=== PATIENT | female | born 1970 | race American Indian/Alaskan Native ===

== ENCOUNTER 2017-11-24 18:50 | Emergency (ER) | payer SELFPAY ==
[2017-11-24 19:02] VITALS: BP 146/82; PULSE 80; RESP 14; TEMP 98; O2SAT 100
[2017-11-24] MEDS ORDERED: Naproxen 500 MG TAB PO STA (19:18)
[2017-11-24] MEDS ORDERED: Naproxen 500 MG TAB PO ONE (19:27)
--- NOTE | 2017-11-24 19:41 | ED PDOC ---
Lower Extremity Pain/Injury Time Seen by Provider: 11/24/17 19:03 Chief Complaint (Nursing): Lower Extremity Problem/Injury Chief Complaint (Provider): Left knee pain History Per: Patient History/Exam Limitations: no limitations Onset/Duration Of Symptoms: Hrs Current Symptoms Are (Timing): Still Present Additional Complaint(s): 47 year old female presents to the emergency department with a complaint of a left knee pain status post fall this morning, 11/24/2017. States she was walking in front of a restaurant when she slipped and fell on an uneven concrete injuring the left knee. reports she thought pain would improve throughout the day after taking an Advil around 11 am but it did not relief symptoms. Fall happened around 7am with persistent pain which prompted patient to the emergency department. Denies history of knee injuries, loss of consciousness, head injury, radiation of pain, or any further medical complaints at this time. Past Medical History Reviewed: Historical Data, Nursing Documentation, Vital Signs Vital Signs: Last Vital Signs Temp 98 F 11/24/17 18:57 Pulse 80 11/24/17 18:57 Resp 14 11/24/17 18:57 BP 146/82 11/24/17 18:57 Pulse Ox 100 11/24/17 18:57 - Medical History PMH: No Chronic Diseases - Surgical History Surgical History: No Surg Hx - Family History Family History: States: Unknown Family Hx - Social History Current smoker - smoking cessation education provided: No Alcohol: None Drugs: Denies - Home Medications Home Medications: Ambulatory Orders Medication Instructions Recorded Azithromycin [Zithromax Z-Nicho] 250 mg PO DAILY #0 tab 04/18/14 Fluticasone Nasal [Flonase] 1 spray NS DAILY #0 spr 04/18/14 Naproxen 500 mg PO BID #20 tab 11/24/17 - Allergies Allergies/Adverse Reactions: Allergies Allergy/AdvReac Type Severity Reaction Status Date / Time No Known Allergies Allergy Verified 04/18/14 20:27 Review of Systems ROS Statement: Except As Marked, All Systems Reviewed And Found Negative (As per HPI, otherwise negative) Constitutional: Negative for: Other (Head injury, loss of consciousness, radiation of pain, or history of left knee injury ) Musculoskeletal: Positive for: Other (left knee pain) Physical Exam - Reviewed Nursing Documentation Reviewed: Yes Vital Signs Reviewed: Yes - Physical Exam Comments: GENERAL APPEARANCE: Patient is awake, alert, oriented x 3, in no acute distress. SKIN: Warm, dry; (-) cyanosis. LOWER EXTRM: (+) Ambulatory in emergency department with steady gait. (+) Diffuse tenderness of the left knee. (+) Range of motion intact with pain on flexion. (-) No effusion, ecchymosis, or skin break. (-) No instability on valgus or varus stress. (-) Anterior or posterior drawer sign. (-) Calf tenderness. Remainder of the lower extrm with full ROM. NEURO AND PSYCH: Mental status as above. - ECG O2 Sat by Pulse Oximetry: 100 (RA) Pulse Ox Interpretation: Normal Medical Decision Making Medical Decision Making: Time: 1904 Initial impression: Acute knee pain/contusion status post fall Initial plan: Left knee x-ray Naproxen 500 mg PO Reevaluation Time: 1948 --x-ray read by me show no significant abnormality. Patient advised that official radiology read of XR is still pending and will call the patient if there is any discrepancy within 24 hours. --Preston wrap applied to knee. NV intact after placement. On re-evaluation, patient reports improvement of symptoms. On exam, patient remains AAOx3, in no acute distress. On exam, neck is supple, lungs CTA, cardiac RRR, neuro exam shows no focal findings. Ambulatory in ED with steady, unassisted gait. VSS, stable for discharge. RICE encouraged. Diagnostic results d/w the patient in great detail. Dx of acute knee pain/ contusion s/p fall d/w the patient. Based on history, exam and diagnostic results plan will be for discharge and outpatient follow up. Advised to follow up with primary care physician in 1-2 days without fail. Advised to take medication as prescribed. Return to the emergency room at any time for any new or worsening symptoms. Patient states she fully agrees with and understands discharge instructions. States that she agrees with the plan and disposition. Verbalized and repeated discharge instructions and plan. I have given the patient opportunity to ask any additional questions. Time: 2018 --Application of PRESTON bandage --Medically stable for discharge and given Rx for Naproxen 500 mg. Advised to follow up with Dr. Corey Tavarez MD Clinical Impression: Knee pain, acute. Contusion of knee. Fall. Scribe Attestation: Documented by Emani Monsalve, acting as a scribe for Karmen Alvarez PA-C. Provider Scribe Attestation: All medical record entries made by the Scribe were at my direction and personally dictated by me. I have reviewed the chart and agree that the record accurately reflects my personal performance of the history, physical exam, medical decision making, and the department course for this patient. I have also personally directed, reviewed, and agree with the discharge instructions and disposition. Disposition - Clinical Impression Clinical Impression: Knee pain, acute, Contusion of knee, Fall - Patient ED Disposition Is Patient to be Admitted: No Counseled Patient/Family Regarding: Studies Performed, Diagnosis, Need For Followup, Rx Given - Disposition Referrals: Corey Tavarez III, MD [Staff Provider] - Disposition: Routine/Home Disposition Time: 20:19 Additional Instructions: REST ICE COMPRESS (BANDAGE) ELEVATE FOLLOW UP WITH PMD/ORTHO IN 1-2 DAYS WITHOUT FAIL. RETURN TO ED WITH ANY NEW OR WORSENING SYMPTOMS. Prescriptions: Naproxen 500 mg PO BID #20 tab Instructions: Contusion (DC), Knee Pain Forms: [facility] ([place]ican) - POA Present On Arrival: Falls Or Trauma
--- NOTE | 2017-11-25 10:26 | RAD ---
PROCEDURE: Left Knee Radiographs. HISTORY: Left knee Pain. No history of recent/ related trauma provided COMPARISON: None. FINDINGS: BONES: Normal. No fracture. JOINTS: Normal. No osteoarthritis. JOINT EFFUSION: None. OTHER FINDINGS: None. IMPRESSION: Normal radiographs of the left knee.
== END 2017-11-24 20:48 | disposition home or self-care (01) ==
LOC: H.ER 18:50
DX: S80.02XA Contusion of left knee, initial encounter (principal); W18.09XA Striking against other object with subsequent fall, initial encounter; Y93.01 Activity, walking, marching and hiking; Y92.480 Sidewalk as the place of occurrence of the external cause

== ENCOUNTER 2018-03-06 14:27 | Emergency (ER) | payer OTHER ==
[2018-03-06 14:32] VITALS: BMI 23.3
[2018-03-06] MEDS ORDERED: Sodium Chloride 0.9% 1,000 ML IV STA (15:26)
[2018-03-06 15:28] LABS: VENOUS BLOOD GAS BASE EXCESS 7.4 mmol/L (0.0-2.0); VENOUS BLOOD GAS PCO2 40 mmHg (40-60); VENOUS BLOOD GAS PO2 27 mm/Hg (30-55)
[2018-03-06 15:42] LABS: SQUAMOUS EPITHIAL 7 /hpf (0-5); URINE BACTERIA MOD (<OCC); URINE BILIRUBIN NEGATIVE (NEGATIVE); URINE CLARITY CLOUDY (Clear); URINE COLOR YELLOW (YELLOW); URINE GLUCOSE (UA) NEG (Normal); URINE LEUKOCYTE ESTERASE SMALL Leu/uL (Negative); URINE PROTEIN 100 mg/dL (NEGATIVE)
[2018-03-06 15:43] LABS: URINE BLOOD SMALL (NEGATIVE)
[2018-03-06 15:43] LABS: ALB/GLOB RATIO 1.1 (1.0-2.1); ALT/SGPT 23 U/L (9-52); AST/SGOT 36 U/L (14-36); BLOOD UREA NITROGEN 6 mg/dl (7-17); CALCIUM 8.8 mg/dL (8.4-10.2); GFR NON-AFRICAN AMERICAN > 60; LIPASE 14 U/L (23-300)
[2018-03-06 15:50] LABS: INR 1.4; PROTHROMBIN TIME 15.6 Seconds (9.8-13.1)
[2018-03-06 15:52] LABS: PARTIAL THROMBOPLASTIN TIME 31.2 Seconds (25.6-37.1)
[2018-03-06 15:54] LABS: BASO % 0.2 % (0.0-2.0); HEMOGLOBIN 7.6 g/dL (12.0-16.0); LYMPH # 0.9 K/uL (1.0-4.3); LYMPH % 6.6 % (20.0-40.0); MEAN CELL VOLUME 66.6 fl (81.0-99.0); MEAN CORPUSCULAR HEMOGLOBIN 21.3 pg (27.0-31.0); MEAN PLATELET VOLUME 8.1 fl (7.2-11.7); MONO # 1.5 K/uL (0.0-0.8); MONO % 10.5 % (0.0-10.0); NEUT # 11.7 K/uL (1.8-7.0); NEUT % 82.7 % (50.0-75.0); NRBC % 0.1 % (0.0-0.0); PLATELET COUNT 324 K/uL (130-400); RBC 3.58 Mil/uL (3.80-5.20); RED CELL DISTRIBUTION WIDTH 17.5 % (11.5-14.5); WHITE BLOOD COUNT 14.2 K/uL (4.8-10.8)
--- NOTE | 2018-03-06 16:14 | RAD ---
Date of service: 03/06/2018 HISTORY: possible admission COMPARISON: Comparison chest 10/20/2012 FINDINGS: LUNGS: No active pulmonary disease. PLEURA: No significant pleural effusion identified, no pneumothorax apparent. CARDIOVASCULAR: Normal. OSSEOUS STRUCTURES: No significant abnormalities. VISUALIZED UPPER ABDOMEN: Normal. OTHER FINDINGS: None. IMPRESSION: No active disease.
--- NOTE | 2018-03-06 16:40 | ED PDOC ---
HPI: General Adult Time Seen by Provider: 03/06/18 14:59 Chief Complaint (Nursing): Flu-like Symptoms Chief Complaint (Provider): Flu-like Symptoms History Per: Patient History/Exam Limitations: no limitations Onset/Duration Of Symptoms: Days (x4) Additional Complaint(s): Patient is a 47 y/o female with no significant past medical history who presents to the ED for evaluation of fever with associated loss of appetite and general weakness, onset x4 days ago. Patient states that she was taking Motrin and initially it was working but it has not been helping now. She also reports 1 episode of vomiting after drinking a lot of apple juice. She states she now has no appetite and has not had a full meal for the past x2 days. Patient denies any toxic habits. She also denies dysuria and hematuria. Patient presents to the ED today because symptoms got worse and Motrin medication no longer provided relief. Past Medical History Reviewed: Historical Data, Nursing Documentation, Vital Signs Vital Signs: Last Vital Signs Temp 99.8 F H 03/06/18 16:53 Pulse 85 03/06/18 16:53 Resp 16 03/06/18 16:53 BP 116/54 L 03/06/18 16:53 Pulse Ox 100 03/06/18 16:53 - Medical History PMH: No Chronic Diseases - Surgical History Surgical History: No Surg Hx - Family History Family History: States: Unknown Family Hx - Social History Current smoker - smoking cessation education provided: No Alcohol: Social Drugs: Denies - Home Medications Home Medications: Ambulatory Orders Medication Instructions Recorded Azithromycin [Zithromax Z-Nicho] 250 mg PO DAILY #0 tab 04/18/14 Fluticasone Nasal [Flonase] 1 spray NS DAILY #0 spr 04/18/14 Naproxen 500 mg PO BID #20 tab 11/24/17 - Allergies Allergies/Adverse Reactions: Allergies Allergy/AdvReac Type Severity Reaction Status Date / Time No Known Allergies Allergy Verified 04/18/14 20:27 Review of Systems ROS Statement: Except As Marked, All Systems Reviewed And Found Negative Constitutional: Positive for: Fever, Weakness, Other (loss of appetite) Gastrointestinal: Positive for: Vomiting Genitourinary Female: Negative for: Dysuria, Hematuria Skin: Negative for: Rash Physical Exam - Reviewed Nursing Documentation Reviewed: Yes Vital Signs Reviewed: Yes - Physical Exam Appears: Positive for: No Acute Distress, Uncomfortable Head Exam: Positive for: ATRAUMATIC, NORMOCEPHALIC Skin: Positive for: Normal Color, Warm, Dry Eye Exam: Positive for: EOMI, Normal appearance, PERRL ENT: Positive for: Normal ENT Inspection, Pharynx Is (normal ). Negative for: Pharyngeal Erythema, Tonsillar Exudate, Tonsillar Swelling Neck: Positive for: Normal, Painless ROM, Supple Cardiovascular/Chest: Positive for: Tachycardia. Negative for: Murmur Respiratory: Positive for: Normal Breath Sounds. Negative for: Respiratory Distress Pulses-Dorsalis Pedis (L): 2+ Pulses-Dorsalis Pedis (R): 2+ Pulses-Radial (L): 2+ Pulses-Radial (R): 2+ Gastrointestinal/Abdominal: Positive for: Tenderness (lower abdomen tender to palpation bilaterally) Back: Positive for: Normal Inspection. Negative for: L CVA Tenderness, R CVA Tenderness Extremity: Positive for: Normal ROM. Negative for: Pedal Edema, Calf Tenderness (pain on calf squeez), Deformity, Swelling Neurologic/Psych: Positive for: Alert, Oriented. Negative for: Motor/Sensory Deficits - Laboratory Results Result Diagrams: 03/06/18 15:30 03/06/18 15:30 - ECG O2 Sat by Pulse Oximetry: 99 (RA) Pulse Ox Interpretation: Normal Medical Decision Making Medical Decision Making: Time: 15:15 Impression: Workup for infectious process; labs and cultures ordered Initial Plan: --VBG --EKG --CMP --HCG --Lipase --CBC w/ diff --PTT --Prothrombin time --CXR --IV fluids --Toradol --Zofran --Urinalysis --reassess patient 19:00 Patient initially had a WBC count of 14 with anemia of 7.7 and hematocrit 23 ( discussion with patient to confirm no shortness of breath, no recent dizziness, and no blood per rectum) Potassium of 3.0 with PO repletion. Patient states that she is feeling better but still has some abdominal pain. She was just at CT. Will be signed out to Dr. Funk pending CT results and final disposition. Scribe Attestation: Documented by Sriram Roman acting as a scribe for Karmen Prater Provider Scribe Attestation: All medical record entries made by the Scribe were at my direction and personally dictated by me. I have reviewed the chart and agree that the record accurately reflects my personal performance of the history, physical exam, medical decision making, and the department course for this patient. I have also personally directed, reviewed, and agree with the discharge instructions and disposition. Disposition - Disposition Forms: [employer] (Macedonian)
[2018-03-06 16:54] VITALS: RESP 16
[2018-03-06] MEDS ORDERED: Iohexol 240 (50 ml) PO STA (16:57)
[2018-03-06] MEDS ORDERED: Iohexol 240 (50 ml) ONE (17:09)
[2018-03-06 17:59] LABS: LYMPHOCYTE 6 % (20-50); MONOCYTE 8 % (0-10); NEUTROPHIL 86 % (42-75); TOTAL CELLS COUNTED 100
[2018-03-06 18:00] LABS: ANISOCYTOSIS SLIGHT; MICROCYTOSIS MODERATE; OVALOCYTES SLIGHT; POIKILOCYTOSIS SLIGHT
[2018-03-06 18:01] LABS: LARGE PLATELETS PRESENT
[2018-03-06] MEDS ORDERED: Potassium Chloride 20 mEq ER Tab PO STA (18:20)
[2018-03-06 18:25] LABS: PLATELET ESTIMATE NORMAL (NORMAL)
[2018-03-06] MEDS ORDERED: Potassium Chloride 20 mEq ER Tab PO ONE (18:39)
--- NOTE | 2018-03-06 19:31 | ED PDOC ---
- Laboratory Results Result Diagrams: 03/06/18 15:30 03/06/18 15:30 - ECG O2 Sat by Pulse Oximetry: 99 (RA) Pulse Ox Interpretation: Normal Medical Decision Making Medical Decision Making: Time: 19:00 Patient signed out to me by Dr. Prater pending CT scan, reassessment, and final disposition. CT Abd/Pelvis: FINDINGS: Lung bases: Unremarkable. No mass. No consolidation. ABDOMEN: Liver: Unremarkable. No mass. Gallbladder and bile ducts: Unremarkable. No calcified stones. No ductal dilation. Pancreas: Unremarkable. No mass. No ductal dilation. Spleen: Unremarkable. No splenomegaly. Adrenals: Unremarkable. No mass. Kidneys and ureters: Unremarkable. No solid mass. No hydronephrosis. Stomach and bowel: Unremarkable. No obstruction. No mucosal thickening. PELVIS: Appendix: Normal appendix. Bladder: Unremarkable. No mass. Reproductive: Multiple large masses in the uterus which may be due to fibroids but some of these are indeterminate based on their size and centrally necrotic appearance. ABDOMEN and PELVIS: Intraperitoneal space: Unremarkable. No free air. No significant fluid collection. Bones/joints: No acute fracture. No dislocation. Soft tissues: Unremarkable. Vasculature: Unremarkable. No abdominal aortic aneurysm. Lymph nodes: Unremarkable. No enlarged lymph nodes. IMPRESSION: Multiple large masses in the uterus which may be due to fibroids but some of these are indeterminate based on their size and centrally necrotic appearance. MRI evaluation may be helpful if indicated. 21:18 Transvaginal Ultrasound ordered. EXAM: US Pelvis, Transvaginal CLINICAL HISTORY: 47 years old, female; Signs and symptoms; Other: Bodyache and chills; Additional info: Possible necrotic fibroids TECHNIQUE: Real-time transvaginal pelvic ultrasound (complete) with image documentation. Transvaginal imaging was used for better evaluation of the endometrium and adnexa. COMPARISON: CT - ABD PELVIS PO IV CONTRAST 03/06/2018 7:50 PM FINDINGS: Uterus/cervix: Multiple large uterine masses most likely representing fibroids. These probable fibroids are intramural, submucosal and exophytic. The largest measures 9.7 x 10.1 cm in the fundus. Uterus measures 15.8 x 9.2 cm. The third dimension is not measured. Endometrial stripe measures 8 mm in thickness. Right ovary: Right ovary is not seen. Left ovary: Left ovary is not seen. Free fluid: Small amount of free fluid in the pelvic cul-de-sac. IMPRESSION: 1. Multiple large uterine masses most likely representing fibroids. These probable fibroids are intramural, submucosal and exophytic. The largest measures 9.7 x 10.1 cm in the fundus. Given the size of these uterine masses, malignancy is not excluded and followup is recommended. 2. Ovaries are not seen. Thank you for allowing us to participate in the care of your patient. Dictated and Authenticated by: Adan Santana MD 03/06/2018 11:03 PM Eastern Time ([place] & [place]) DW pt findings and plan of care. Urgent followup with [facility]. On reeval, pt more concerned about symptoms of sinus pressure and pt febrile. Tylenol/ibuprofen ordered. Will rx for sinusitis. Scribe Attestation: Documented by, Juanis Carson acting as a scribe for Jessica Funk MD. Provider Scribe Attestation: All medical record entries made by the Scribe were at my direction and personally dictated by me. I have reviewed the chart and agree that the record accurately reflects my personal performance of the history, physical exam, medical decision making, and the department course for this patient. I have also personally directed, reviewed, and agree with the discharge instructions and disposition. Disposition - Clinical Impression Clinical Impression: Fever, Sinusitis, Fibroid, Anemia, Hypokalemia - POA Present On Arrival: None - Disposition [facility] - 03/07/18 (CALL TOMORROW TO SETUP FOLLOWUP APPOINTMENT THIS WEEK) Disposition: Routine/Home Disposition Time: 21:00 Condition: STABLE Prescriptions: Amoxicillin/Clavulanate [Augmentin 875 MG-125 MG] 1 tab PO BID #14 tab Ferrous Sulfate [Feosol] 325 mg PO TID #90 tab Fluticasone Propionate [Flonase] 1 spr NS DAILY #1 bot Ibuprofen [Motrin Tab] 600 mg PO Q8 PRN #60 tab PRN Reason: FEVER OR HEADACHE Instructions: Hypokalemia (DC), Anemia Caused by Low Iron, Adult (DC), Sinusitis, Adult (DC), Uterine Fibroids (DC) Forms: [facility] ED School/Work Excuse
[2018-03-06] MEDS ORDERED: Iohexol 300 100 ML IJ ONE (19:47)
[2018-03-06] MEDS ORDERED: Sodium Chloride 0.9% 50 ML IV ONE (19:47)
[2018-03-06 21:20] VITALS: BP 105/63; PULSE 76; TEMP 98.3
[2018-03-06 21:31] VITALS: O2SAT 99
--- NOTE | 2018-03-06 22:56 | CARD ---
APPROVED REPORT Date of service: 03/06/2018 EKG Measurement Heart [id number] <Conclusion> Normal sinus rhythm Normal ECG
--- NOTE | 2018-03-07 14:31 | CT ---
Date of service: 03/06/2018 PROCEDURE: CT Abdomen and Pelvis with contrast HISTORY: abd pain, vomit, leukocytosis COMPARISON: Transvaginal ultrasound 03/06/2018. TECHNIQUE: Following oral and intravenous contrast administration, a CT examination of the abdomen and pelvis performed from the domes of the diaphragms to the symphysis pubis with reformatted datasets provided not only axial but also sagittal and coronal series. Contrast dose: Omnipaque 300, 100 cc Radiation dose: Total exam DLP = 216.34 mGy-cm. This CT exam was performed using one or more of the following dose reduction techniques: Automated exposure control, adjustment of the mA and/or kV according to patient size, and/or use of iterative reconstruction technique. FINDINGS: LOWER THORAX: Unremarkable. LIVER: Unremarkable. No gross lesion or ductal dilatation. GALLBLADDER AND BILE DUCTS: Unremarkable. PANCREAS: Unremarkable. No gross lesion or ductal dilatation. SPLEEN: Unremarkable. ADRENALS: Unremarkable. No mass. KIDNEYS AND URETERS: Unremarkable. No hydronephrosis. No solid mass. VASCULATURE: Unremarkable. No aortic aneurysm. BOWEL: Unremarkable. No obstruction. No gross mural thickening. APPENDIX: Normal appendix. PERITONEUM: Unremarkable. No free fluid. No free air. LYMPH NODES: Unremarkable. No enlarged lymph nodes. BLADDER: Unremarkable. REPRODUCTIVE: The uterus is grossly enlarged due to various solid and cystic irregularly enhancing masses likely reflecting fibroid uterine disease. The largest mass is predominantly radial lucent at the left side of the uterus measuring at least 9.2 x 8.2 cm which trace internal enhances suspicious for a degenerated fibroid. This can be better characterized by MRI with and without intravenous gadolinium if not already evaluated and as clinically warranted. BONES: No acute fracture. OTHER FINDINGS: None. IMPRESSION: 1. No definite acute abdominal findings. 2. Enlarged uterus likely on the basis of extensive uterine fibroid changes including a large degenerated fibroid 9.2 x 8.2 cm at the left uterine fundus as described above. Further care station by MRI with and without gadolinium can be performed if not already evaluated and as clinically warranted. Concordant preliminary report from [facility], 03/06/2018.
--- NOTE | 2018-03-07 16:36 | US ---
Date of service: 03/06/2018 HISTORY: possible necrotic fibroids COMPARISON: None available. TECHNIQUE: Transvaginal pelvic ultrasound was performed with longitudinal and transverse images submitted for interpretation. FINDINGS: UTERUS: Measures 15.9 x 9.2 x 13.2 cm. Uterus is quite enlarged and appears slightly retroverted with extensive myometrial changes. There multiple uterine fibroids identified with the largest identified at the upper to mid fundus toward the left measuring 9.7 x 10.1 x 10.2 cm. The endometrium is not identified due to extensive fibroid uterine changes. No definitive cystic changes are identified throughout the demonstrated fibroids. An upper fundal pedunculated fibroid measures 3.5 cm. A mid fundal sub serosal fibroid measures 3.4 cm greatest dimension with 2 lower uterine segment fibroids present. The more caudal cephalad measures 2.2 cm greatest dimension the more caudad measures 4.9 cm, which bridges the sub serosal and submucous spaces. Finally, a posterior lower uterine segment fibroid measures 4.7 cm and also bridges submucous and sub serosal spaces. ENDOMETRIUM: The endometrium is not confidently demonstrated due to extensive uterine fibroids. CERVIX: No cervical abnormality identified. RIGHT OVARY: None identified. LEFT OVARY: Not identified. FREE FLUID: No significant free fluid noted. OTHER FINDINGS: None. IMPRESSION: Gross uterine enlargement is appreciated multiple uterine fibroids numbering at least 6 with the dominant fibroid identified at the upper left fundus. At least 3 fibroids bridges both the submucous and sub serosal spaces with the endometrium limited evaluation. No suspicious adnexal mass however neither ovary is identified, potentially a function of enlarged fibroid uterus.
== END 2018-03-07 00:56 | disposition home or self-care (01) ==
LOC: H.ER 14:27
DX: R50.9 Fever, unspecified (principal); J32.9 Chronic sinusitis, unspecified; D25.9 Leiomyoma of uterus, unspecified; D64.9 Anemia, unspecified; E87.6 Hypokalemia; R00.0 Tachycardia, unspecified
CPT/HCPCS: 71045; 74177; 76830; 80053; 81003; 81025; 82803; 83690; 85025; 85610; 85730; 87040; 87086; 93005; 96361; 96374; 96375; 99285; J1885; J2405; J7030; Q9966; Q9967

== ENCOUNTER 2018-11-02 11:07 | Emergency (ER) | payer OTHER ==
[2018-11-02 11:08] VITALS: BMI 23.3
[2018-11-02] MEDS ORDERED: Sodium Chloride 0.9% 1,000 ML IV STA (11:33)
[2018-11-02] MEDS ORDERED: Iohexol 240 (50 ml) PO STA (11:36)
--- NOTE | 2018-11-02 11:43 | ED PDOC ---
HPI:Nausea, Vomiting, Diarrhea Time Seen by Provider: 11/02/18 11:14 Chief Complaint (Nursing): GI Problem Chief Complaint (Provider): diarrhea History Per: Patient History/Exam Limitations: no limitations Additional Complaint(s): 48 y/o F with no significant PMH who presents with diarrhea for the past 6 days. Pt states that she has been having watery diarrhea every time she eats or drinks anything about 5 - 6 times per day. She gets crampy left sided abdominal pain right before she has the diarrhea but otherwise denies pain, N/V, fevers, chills, dysuria, vaginal discharge. Stool is more formed today but she has not eaten or drank anything since 6:30pm last night. She further denies dizziness/weakness. LMP 10/26/18. Past Medical History Reviewed: Historical Data, Nursing Documentation, Vital Signs Vital Signs: Last Vital Signs Temp 98.2 F 11/02/18 11:13 Pulse 70 11/02/18 11:13 Resp 16 11/02/18 11:13 BP 116/74 11/02/18 11:13 Pulse Ox 99 11/02/18 11:13 - Medical History PMH: No Chronic Diseases - Surgical History Surgical History: No Surg Hx - Family History Family History: States: Unknown Family Hx - Social History Current smoker - smoking cessation education provided: No Ex-Smoker (has not smoked in the last 12 months): No Alcohol: Occasional Drugs: Denies - Allergies Allergies/Adverse Reactions: Allergies Allergy/AdvReac Type Severity Reaction Status Date / Time No Known Allergies Allergy Verified 04/18/14 20:27 Review of Systems Constitutional: Negative for: Fever, Chills Gastrointestinal: Positive for: Abdominal Pain, Diarrhea. Negative for: Nausea, Vomiting Genitourinary Female: Negative for: Dysuria Physical Exam - Reviewed Nursing Documentation Reviewed: Yes Vital Signs Reviewed: Yes - Physical Exam Appears: Positive for: Non-toxic Skin: Positive for: Normal Color Cardiovascular/Chest: Positive for: Regular Rate, Rhythm Respiratory: Positive for: Normal Breath Sounds Gastrointestinal/Abdominal: Positive for: Soft, Tenderness (mild LLQ abdominal tenderness on palpation). Negative for: Distended, Guarding, Rebound Back: Negative for: L CVA Tenderness, R CVA Tenderness Neurological/Psych: Positive for: Awake, Alert, Oriented - Laboratory Results Result Diagrams: 11/02/18 12:20 11/02/18 12:20 - ECG O2 Sat by Pulse Oximetry: 99 Medical Decision Making Medical Decision Making: CBC, CMP, lipase CT abd/pelvis w/ PO and IV contrast NS 1L IV x1 Urine dip Urine preg Urine dip: LE negative, nitrate negative, trace blood CT: FINDINGS: LOWER THORAX: Unremarkable. LIVER: Probable diffuse fatty infiltration of the liver.. No gross lesion or ductal dilatation. GALLBLADDER AND BILE DUCTS: Unremarkable. PANCREAS: Unremarkable. No gross lesion or ductal dilatation. SPLEEN: Unremarkable. ADRENALS: Unremarkable. No mass. KIDNEYS AND URETERS: Unremarkable. No hydronephrosis. No solid mass. VASCULATURE: Unremarkable. No aortic aneurysm. No aortic atherosclerotic calcification or mural plaque present. BOWEL: Unremarkable. No obstruction. No gross mural thickening. APPENDIX: Portions of the appendix are believed identified and appear grossly unremarkable.. PERITONEUM: Unremarkable. No free fluid. No free air. LYMPH NODES: Unremarkable. No enlarged lymph nodes. BLADDER: Small-appears to be compressed by the enlarged uterus REPRODUCTIVE: The uterus is grossly abnormal is grossly enlarged and lobulated. The internal density consist of multiple mostly hypodense mass some areas of relative peripheral enhancement are present. An enlarged uterus filled with multiple fibroids is inferred. The largest such fibroid appears to the left of the fundu s is mostly still appears intramural it measures approximately 9 mm by 9 mm x 6.5 cm. The entire uterus anteverted is estimated to be from the cervix base to the fundus at least 14 cm. With an AP dimension of 9.4 cm in width of approximately 11 cm. The uterus markedly compresses the bladder and displaces surrounding bowel loops. The ureters are difficult to track distally proximal hydronephrosis or no proximal hydroureter seen. Distinct ovaries separate from this large heterogeneous fibroid filled uterus is problematic. And not definitive. BONES: No acute fracture. OTHER FINDINGS: None. IMPRESSION: Markedly abnormal appearing uterus-enlarged inferred as filled with multiple uterine fibroids clearly identified.. Neither ovary is definitively identified. Of the enlarged uterus is compressing the bladder and displacing bowel loops cephalad. No proximal ureteral dilatation. No proximal hydronephrosis. The distal ureters however are not Labs: HgB 8.6 (previously 7.3 in 2018). Pt states that she takes iron intermittently. Advised to take iron regularly and to remain hydrated. Follow up with Patient Service Rep re: uterine fibroids and crusher for further evaluation of low WBCs. She has not had further diarrhea while in ED. Stable for d/c home. Disposition - Clinical Impression Clinical Impression: Diarrhea - Patient ED Disposition Is Patient to be Admitted: No Counseled Patient/Family Regarding: Studies Performed, Diagnosis, Need For Followup - Disposition [facility] Anitra Antonio MD [Staff Provider] - Disposition: Routine/Home Disposition Time: 17:15 Condition: STABLE Additional Instructions: Follow up with your medical billing supervisor for further evaluation of fibroids. Stay hydrated and drink lots of fluids. Avoid greasy foods and milk products. Eat bananas, applesauce, rice, tea and toast. Follow up with crusher re: low white blood cells. Take iron for your anemia. Return to ER for worsening symptoms. Instructions: Diarrhea and Traveler's Diarrhea, Adult (DC) Forms: [facility] ([place]), [facility] ED School/Work Excuse Print Language: LAO
[2018-11-02] MEDS ORDERED: Iohexol 240 (50 ml) ONE (11:44)
[2018-11-02 12:59] LABS: BASO % 1.5 % (0.0-2.0); EOS # 0.1 K/uL (0.0-0.7); EOS % 1.9 % (0.0-4.0); HEMOGLOBIN 8.6 g/dL (12.0-16.0); LYMPH % 36.2 % (20.0-40.0); MEAN CELL VOLUME 68.1 fl (81.0-99.0); MEAN CORPUSCULAR HGB CONC 30.8 g/dL (33.0-37.0); MONO # 0.4 K/uL (0.0-0.8); MONO % 12.7 % (0.0-10.0); NEUT # 1.4 K/uL (1.8-7.0); NEUT % 47.7 % (50.0-75.0); NRBC % 0.1 % (0.0-0.0); RBC 4.09 Mil/uL (3.80-5.20); RED CELL DISTRIBUTION WIDTH 19.5 % (11.5-14.5); WHITE BLOOD COUNT 2.8 K/uL (4.8-10.8)
[2018-11-02 13:13] LABS: ALB/GLOB RATIO 1.1 (1.0-2.1); ALBUMIN 4.2 g/dL (3.5-5.0); BLOOD UREA NITROGEN 12 mg/dl (7-17); CALCIUM 8.7 mg/dL (8.4-10.2); GFR NON-AFRICAN AMERICAN > 60; LIPASE 38 U/L (23-300)
[2018-11-02 13:28] LABS: ALT/SGPT 24 U/L (9-52); AST/SGOT 51 U/L (14-36)
[2018-11-02] MEDS ORDERED: Iohexol 300 100 ML IJ ONE (13:51)
[2018-11-02] MEDS ORDERED: Sodium Chloride 0.9% 100 ML ONE (13:51)
--- NOTE | 2018-11-02 15:09 | CT ---
Date of service: 11/02/2018 PROCEDURE: CT Abdomen and Pelvis with contrast HISTORY: LLQ abdominal pain COMPARISON: None. TECHNIQUE: Contrast dose: Radiation dose: Total exam DLP = 208.26 mGy-cm. This CT exam was performed using one or more of the following dose reduction techniques: Automated exposure control, adjustment of the mA and/or kV according to patient size, and/or use of iterative reconstruction technique. FINDINGS: LOWER THORAX: Unremarkable. LIVER: Probable diffuse fatty infiltration of the liver.. No gross lesion or ductal dilatation. GALLBLADDER AND BILE DUCTS: Unremarkable. PANCREAS: Unremarkable. No gross lesion or ductal dilatation. SPLEEN: Unremarkable. ADRENALS: Unremarkable. No mass. KIDNEYS AND URETERS: Unremarkable. No hydronephrosis. No solid mass. VASCULATURE: Unremarkable. No aortic aneurysm. No aortic atherosclerotic calcification or mural plaque present. BOWEL: Unremarkable. No obstruction. No gross mural thickening. APPENDIX: Portions of the appendix are believed identified and appear grossly unremarkable.. PERITONEUM: Unremarkable. No free fluid. No free air. LYMPH NODES: Unremarkable. No enlarged lymph nodes. BLADDER: Small-appears to be compressed by the enlarged uterus REPRODUCTIVE: The uterus is grossly abnormal is grossly enlarged and lobulated. The internal density consist of multiple mostly hypodense mass some areas of relative peripheral enhancement are present. An enlarged uterus filled with multiple fibroids is inferred. The largest such fibroid appears to the left of the fundus is mostly still appears intramural it measures approximately 9 mm by 9 mm x 6.5 cm. The entire uterus anteverted is estimated to be from the cervix base to the fundus at least 14 cm. With an AP dimension of 9.4 cm in width of approximately 11 cm. The uterus markedly compresses the bladder and displaces surrounding bowel loops. The ureters are difficult to track distally proximal hydronephrosis or no proximal hydroureter seen. Distinct ovaries separate from this large heterogeneous fibroid filled uterus is problematic. And not definitive. BONES: No acute fracture. OTHER FINDINGS: None. IMPRESSION: Markedly abnormal appearing uterus-enlarged inferred as filled with multiple uterine fibroids clearly identified.. Neither ovary is definitively identified. Of the enlarged uterus is compressing the bladder and displacing bowel loops cephalad. No proximal ureteral dilatation. No proximal hydronephrosis. The distal ureters however are not
[2018-11-02 19:44] VITALS: BP 139/88; PULSE 77; RESP 17; TEMP 98
[2018-11-02 21:31] VITALS: O2SAT 99
== END 2018-11-02 17:15 | disposition home or self-care (01) ==
LOC: H.ER 11:07
DX: R19.7 Diarrhea, unspecified (principal); D25.9 Leiomyoma of uterus, unspecified
CPT/HCPCS: 74177; 80053; 81025; 83690; 85025; 99283; J7030; Q9966; Q9967